=== PATIENT | male | born 1975 | race Caucasian/White ===

== ENCOUNTER 2021-12-07 12:54 | Emergency (ER) | payer OTHER, SELFPAY ==
--- NOTE | ~2021-12-07 | XR_ITS ---
XR chest 2V DATE: 12/07/2021 13:15 INDICATION: Palpitations TECHNIQUE: 2 views COMPARISON: 03/29/2019 2 view chest FINDINGS: Normal heart size. No pulmonary infiltrate or consolidation, pleural effusion or pulmonary vascular congestion or pneumo thorax. Mild degenerative change of the thoracic spine. IMPRESSION: Is or significant change since 03/29/2019 Reviewed, dictated and finalized at location B.
--- NOTE | 2021-12-07 12:55 | ECG_ITS ---
Measurements Intervals [place] Rate: 96 P: 31 TN: 120 QRS: 53 QRSD: 89 T: 53 QT: 316 QTc: 400 Interpretive Statements SINUS RHYTHM NONSPECIFIC ST & T-WAVE ABNORMALITY COMPARED TO ECG 03/29/2019 12:27:22 T-WAVE ABNORMALITY NOW PRESENT Electronically Signed On 12-07-2021 20:00:19 CDT by Alexa Angel M.D.
[2021-12-07 13:21] VITALS: BP 120/84; PULSE 94; RESP 18; TEMP 36.6; O2SAT 99
[2021-12-07 13:23] LABS: Basophils Absolute Auto 0.1 K/mm3 (0.0-0.1); Basophils Percent Auto 0.9 % (0.2-1.2); Eosinophils Absolute Auto 0.1 K/mm3 (0-0.3); Eosinophils Percent Auto 0.8 % (0-4.4); Hemoglobin 17.8 g/dL (14.0-18.0); Immature Granulocyte Absolute 0.03 K/mm3 (0.00-0.031); Immature Granulocyte Percent A 0.5 % (0-0.5); Lymphocytes Absolute Auto 1.55 K/mm3 (0.9-3.2); Lymphocytes Percent Auto 23.3 % (18.3-44.2); Mean Corpuscular HGB Conc 33.6 g/dl (32-36); Mean Corpuscular Hemoglobin 30.4 pg (26-34); Mean Corpuscular Volume 90.6 fl (80-100); Mean Platelet Volume 10.8 fl (7.4-10.4); Monocytes Absolute Auto 0.7 K/mm3 (0.1-0.6); Monocytes Percent Auto 10.2 % (2.6-8.5); Neutrophils Absolute Auto 4.3 K/mm3 (1.3-6.7); Neutrophils Percent Auto 64.3 % (45.5-73.1); Platelet Count Result 250 k/mm3 (150-375); Red Blood Count 5.85 M/mm3 (4.6-6.20); Red Cell Distribution Width 12.4 % (11.5-14.5); White Blood Count 6.7 K/mm3 (4.5-10.0)
[2021-12-07 13:27] LABS: Alanine Aminotransferase 32 U/L (6-50); Albumin Level 5.3 g/dL (3.5-5.1); Alkaline Phosphatase 85 U/L (38-126); Anion Gap 7 mmol/L (8-16); Aspartate Amino Transferase 25 U/L (17-59); Blood Urea Nitrogen 16 mg/dL (9-20); Calcium 9.8 mg/dL (8.4-10.2); Carbon Dioxide 26 mmol/L (22-30); Chloride 102 mmol/L (98-107); Estimated CRCL calculation 84 ml/min; Estimated Glomerular Filt Rate > 60; Glucose 128 mg/dL (65-110); Lipase 92 U/L (23-300); Potassium 5.3 mmol/L (3.4-5.0); Sodium 135 mmol/L (137-145)
[2021-12-07 13:38] LABS: Troponin I < 0.012 ng/mL (0.000-0.034)
--- NOTE | 2021-12-07 13:47 | ED.ARRPALP ---
HPI - Arrhythmia/Palpitations General Chief Complaint: Arrhythmia/Palpitations Stated Complaint: palpitations x 6 days Time Seen by Provider: 12/07/21 13:30 History of Present Illness HPI narrative: Pt presents with felling of heart beating irregular off and on for last week. Pt [place] CP or SOB. Pt has been under stress and has been having trouble sleeping. Pt deos not drink a lot of caffeine. Pt says it causes him to get anxious at time and he has numbness and tingling in his fingers and hands. Related Data Home Medications Medication Instructions Recorded Confirmed No Home Medications 12/07/21 Allergies Allergy/AdvReac Type Severity Reaction Status Date / Time Penicillins Allergy Unknown Unknown Verified 12/07/21 13:23 Review of Systems Review of Systems: All systems reviewed & are unremarkable except as noted in HPI and below PMFSH Past Medical History Medical History (Updated 12/07/21 @ 15:09 by Wm Dickerson III, DO) Anxiety Bronchitis Surgical History Surgical History (Updated 03/29/19 @ 12:20 by Talita Sage) History of appendectomy History of tonsillectomy Social History Social History (Updated 03/29/19 @ 12:20 by Talita Sage) Smoking status: Never smoker Alcohol intake: current Alcohol use details: Occasional Substance use: never Exam Const: General: healthy appearing Nutritional Appearance: well nourished Orientation/consciousness: patient oriented x3 Limitations: no limitations HENMT: Head: normal to inspection Resp: Effort & Inspection: normal respiratory effort Auscultation: clear to auscultation bilaterally Cardio: Rate: regular rate Rhythm: regular rhythm GI: Auscultation: normal bowel sounds Skin: General skin exam: normal color Rashes: no rashes Neuro: General: patient oriented x3, moves all extremities, no meningeal signs and no focal motor deficits Cranial nerves: Yes Nystagmus not present Speech: normal speech Gait exam (Neuro): Normal gait present Extrem: General: normal to inspection Psych: Mental Status: mental status grossly normal Affect: normal affect Attitude: cooperative Course Course Emergency Course: pvc's noted on monitor and pt verifies that this is what he is feeling Vital Signs Vital signs: Vital Signs Temperature 97.8 F 12/07/21 13:21 Pulse Rate 94 12/07/21 13:21 Respiratory Rate 18 12/07/21 13:21 Blood Pressure 120/84 12/07/21 13:21 Pulse Oximetry 99 12/07/21 13:21 Oxygen Delivery Room Air 12/07/21 13:21 Temperature 97.8 F 12/07/21 13:21 Pulse Rate 71 12/07/21 16:41 Respiratory Rate 14 12/07/21 16:41 Blood Pressure 130/72 12/07/21 16:41 Pulse Oximetry 99 12/07/21 16:41 Oxygen Delivery Room Air 12/07/21 13:21 MDM - Arrhythmia/Palpitations Lab Data Result diagrams: 12/07/21 13:05 12/07/21 13:05 Labs: Lab Results 12/07/21 12/07/21 12/07/21 Range/Units 13:05 13:05 13:05 WBC 6.7 (4.5-10.0) K/mm3 RBC 5.85 (4.6-6.20) M/mm3 Hgb 17.8 (14.0-18.0) g/dL Hct 53.0 H (42.0-52.0) % MCV 90.6 (80-100) fl MCH 30.4 (26-34) pg MCHC 33.6 (32-36) g/dl RDW 12.4 (11.5-14.5) % Plt Count 250 (150-375) k/mm3 MPV 10.8 H (7.4-10.4) fl Immature Gran % (Auto) 0.5 (0-0.5) % Neut % (Auto) 64.3 (45.5-73.1) % Lymph % (Auto) 23.3 (18.3-44.2) % Stone % (Auto) 10.2 H (2.6-8.5) % Eos % (Auto) 0.8 (0-4.4) % Baso % (Auto) 0.9 (0.2-1.2) % Lymph # (Auto) 1.55 (0.9-3.2) K/mm3 Stone # (Auto) 0.7 H (0.1-0.6) K/mm3 Eos # (Auto) 0.1 (0-0.3) K/mm3 Baso # (Auto) 0.1 (0.0-0.1) K/mm3 Abs Immat Gran (auto) 0.03 (0.00-0.031) K/mm3 Absolute Neuts (auto) 4.3 (1.3-6.7) K/mm3 Absolute Nucleated RBC 0.0 (0.0-0.012) K/mm3 Nucleated RBC % 0.0 (0.0-0.2) % PT 13.0 (11.1-14.7) Seconds INR 1.0 APTT 27.4 (22.3-36.8) SECONDS Sodium 135 L (137-145)
[2021-12-07 13:49] LABS: Partial Thromboplastin Time 27.4 SECONDS (22.3-36.8)
[2021-12-07] MEDS: SODIUM CHLORIDE 0.9% IV 1,000 ML 999 ML IV CONT (13:57)
[2021-12-07 14:03] VITALS: BP 122/80; PULSE 70; RESP 9; O2SAT 100
--- NOTE | 2021-12-07 14:14 | ECG_ITS ---
Measurements Intervals [place] Rate: 69 P: 35 DC: 169 QRS: 33 QRSD: 97 T: 46 QT: 375 QTc: 403 Interpretive Statements SINUS RHYTHM COMPARED TO ECG 12/07/2021 12:59:55 NO SIGNIFICANT CHANGES Electronically Signed On 12-07-2021 20:01:53 CDT by Alexa Angel M.D.
[2021-12-07 14:47] VITALS: BP 120/84; PULSE 75; RESP 13; O2SAT 99
[2021-12-07 15:55] VITALS: BP 117/80; PULSE 80; RESP 21; O2SAT 99
[2021-12-07 16:39] LABS: Troponin I < 0.012 ng/mL (0.000-0.034)
[2021-12-07 16:41] VITALS: BP 130/72; PULSE 71; RESP 14; O2SAT 99
== END 2021-12-07 16:42 | disposition home or self-care (01) ==
PROVIDERS: Emergency Medicine; Emergency Provider Emergency Medicine
DX: R00.2 Palpitations (principal); F41.9 Anxiety disorder, unspecified; R94.31 Abnormal electrocardiogram [ECG] [EKG]
CPT/HCPCS: 36415; 71046; 80053; 83690; 84484; 85025; 85610; 85730; 93005; 96360; 99284; J7030

== ENCOUNTER 2024-06-24 07:27 | Emergency (ER) | payer OTHER, SELFPAY ==
[2024-06-24 07:27] VITALS: BP 151/95; PULSE 87; RESP 16; TEMP 36.6; O2SAT 99
--- OUTSIDE RECORDS SUMMARY | 2024-06-24 07:31 | XMS_ITS | Clinical Summary ---
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 Phone Unavailable Primary Care Provider Unavailabl e Social History Tobacco Use Types Packs/Day Years Used Date Smoking Tobacco: Former Sex and Gender Information Value Date Recorded Sex Assigned at Not on file Legal Sex Male 5:20 PM CDT Gender Identity Not on file Sexual Orientation Not on file Last Filed Vital Signs Vital Sign Reading Time Taken Comments Blood Pressure 122/88 09/13/2015 4:19 PM CDT Pulse 84 09/13/2015 4:19 PM CDT Temperature - - Respiratory Rate - - Oxygen Saturation - - Inhaled Oxygen Concentration - - Weight 80.7 kg (178 lb) 09/13/2015 4:19 PM CDT Height 185.4 cm (6' 1 ) 09/13/2015 4:19 PM CDT Body Mass Index 23.48 09/13/2015 4:19 PM CDT Plan of Treatment Health Maintenance Due Date Last Done Comments Colorectal Cancer Screening Colonoscopy (10 Years) 1975 Annual Physical 1978 Hepatitis C 1993 DTaP, Tdap and Td Vaccines ( 1 - Tdap) 1994 Hepatitis B Vaccines (1 of 3 - 19+ 3-dose series) 1994 COVID-19 Vaccine (2023-2 5 season) 2023 Influenza Adult (#1) 2024 Meningococcal B Vaccine Aged Out No l onger eligible based on patient's age to complete this topic Meningococcal Vaccine Aged Out No juan bladimir eligible based on patient's age to complete this topic Pneumococcal Vaccine: Pediat rics (0 to 5 Years) and At-Risk Patients (6 to 64 Years) Aged Out No longer eligible b ased on patient's age to complete this topic RSV Immunizations Under 20 Months Aged Out No longer eligible based on patient's age to complete this topic
--- OUTSIDE RECORDS SUMMARY | 2024-06-24 09:44 | XMS_ITS | Clinical Summary ---
Author Organization [facility] Address [address] [place] [id number] Care Team Providers Care State Epidemiologist Name Role Phone Unavailable Primary Care Provider [...]
--- NOTE | 2024-06-24 10:04 | ED.EYEPROB ---
HPI - Eye Problem General Chief complaint: Eye Problems Stated complaint: hair in eye Time Seen by Provider: 06/24/24 09:00 Source: patient Mode of arrival: ambulatory Limitations: no limitations History of Present Illness HPI Narrative: This is a 49-year-old male who presents to the ED for chief complaint of right eye irritation beginning this morning. Patient states that he felt like he had a hair get stuck in his eye while in the shower today. States that he tried flushes I several times with a feels like something is still stuck in the eye. Denies vision change other than minor blurred vision due to tearing. Denies any injury to the eye. 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 Related Data Allergies Allergy/AdvReac Type Severity Reaction Status Date / Time Penicillins Allergy Unknown Unknown Verified 06/24/24 07:29 Review of Systems Review of Systems: All systems as dictated in HPI [facility] Past Medical History Medical History (Updated 06/24/24 @ 10:07 by Eben West PA-C) Anxiety Bronchitis Surgical History Surgical History (Updated 03/29/19 @ 12:20 by Talita Sage) History of appendectomy History of tonsillectomy Social History Social History (Updated 03/29/19 @ 12:20 by Talita Sage) Smoking status: Never smoker Alcohol intake: current Alcohol use details: Occasional Substance use: never Exam Narrative: GENERAL: Well-appearing, well-nourished, and in no acute distress. HEAD: Normocephalic, atraumatic. EYES: PERRLA and EOMI. No foreign body detected. Wood's lamp exam reveals very mild corneal abrasion to the 7 o'clock position. No Dannie sign. SKIN: Warm, dry, no rash. NEURO: Alert and oriented x4. No focal deficits. PSYCH: Normal mood and affect. Course Vital Signs Vital signs: Vital Signs Temperature 98 F 06/24/24 07:27 Pulse Rate 87 06/24/24 07:27 Respiratory Rate 16 06/24/24 07:27 Blood Pressure 151/95 H 06/24/24 07:27 Pulse Oximetry 99 06/24/24 07:27 Oxygen Delivery Room Air 06/24/24 07:27 Temperature 98 F 06/24/24 07:27 Pulse Rate 87 06/24/24 07:27 Respiratory Rate 16 06/24/24 07:27 Blood Pressure 151/95 H 06/24/24 07:27 Pulse Oximetry 99 06/24/24 07:27 Oxygen Delivery Room Air 06/24/24 07:27 MDM - Eye Problem MDM Narrative Medical decision making narrative: This is a 49-year-old male who presents to the ED for chief complaint of right eye irritation beginning this morning. Vitals are normal. Exam remarkable for the above. There is no foreign body detected on exam. There is conjunctival injection mildly. Wood's lamp exam reveals very mild corneal abrasion at the 7 o'clock position. No Dannie sign. Rx for ofloxacin drops given. Patient will be discharged in stable condition. Supportive measures discussed and return precautions given. Patient is understanding and agreeable with plan for discharge with PCP follow-up. Discharge Plan Discharge Clinical Impression: Corneal abrasion Patient Disposition: Home, Self-Care Condition: Stable Instructions: Antibiotic Form Additional Instructions: Exam reassuring overall today. No foreign bodies noted. There is a small area of abrasion which will resolve on its own. Please use antibiotic drops to prevent infection. Follow-up with [facility] if you have continue to have issues in this eye. If you have any new or worsening symptoms please return to the ER for further evaluation. Patient Language: Persian Prescriptions: New ofloxacin 0.3 % drops See Rx Instructions .ROUTE .COMPLEX Qty: 5 0RF Rx Instructions: put 1-2 drps into affected eye(s) every 2-4 h x 2 days, then 1-2 drps 4 times/day days 3-7 Follow-up/Referrals: UNKNOWN,DOCTOR [Primary Care Provider] - Time of Disposition: 10:07
[2024-06-24 10:59] VITALS: BP 141/75; PULSE 72; RESP 16; TEMP 36.6; O2SAT 100
== END 2024-06-24 10:59 | disposition home or self-care (01) ==
PROVIDERS: Emergency Provider Physician Assistant
DX: S05.01XA Injury of conjunctiva and corneal abrasion without foreign body, right eye, initial encounter (principal); X58.XXXA Exposure to other specified factors, initial encounter
CPT/HCPCS: 99283; A9270